=== PATIENT | male | born 1985 | race Caucasian/White ===

== ENCOUNTER 2021-10-16 13:42 | Emergency (ER) | payer BC, SELFPAY ==
--- NOTE | 2021-10-16 13:46 | XR_ITS ---
WS: [id number] Exam: XR knee LT 3V* [id number] Date/Time of Exam: 10/16/2021 1:46 PM Reason For Exam: knee pain after fall There is a comminuted fracture of the upper diaphysis of the fibula with butterfly fragment. Alignmen t should be satisfactory for healing. No fracture of the knee identified. Mild degenerative change of the medial and lateral joint compartments. No joint effusion. XR/XR knee LT 3V* [id number] IMPRESSION: 1. Comminuted fracture of the upper diaphysis of the fibula. 2. Mild degenerative changes of the knee but no fracture seen.
[2021-10-16 14:18] VITALS: BP 127/82; PULSE 83; RESP 16; TEMP 36.8; O2SAT 98; BMI 38.3
--- NOTE | 2021-10-16 14:19 | W.ED.LOWEXIN ---
HPI - Extremity Injury (Lower) General: Chief Complaint: Extremity Injury, Lower Stated Complaint: Fell, Messed up his left knee Time Seen by Provider: 10/16/21 14:19 Source: patient Mode of arrival: wheelchair Limitations: no limitations History of Present Illness: 36-year-old male presents to the ER today for left knee and ankle pain x1 hour. Patient reports he was golfing this afternoon and fell out of the cart onto the concrete. Patient reports he attempted to walk on it and reported severe pain in the ankle and knee. Patient reports he also has a laceration to the knee but bleeding is controlled. Tetanus shot is unknown. Patient has not take anything for pain at this time. Review of Systems General: Reports: 10 or more systems reviewed and unremarkable except in HPI and below PFSH ED PFSH: Medical History No pertinent past medical history Social History Smoking and tobacco status: never smoked Alcohol intake: never Physical Exam Const: COMMON NORMALS: average body habitus, patient oriented x3, no limitations, healthy appearing, alert and well nourished Resp: COMMON NORMALS: normal respiratory effort and No retractions EFFORT & INSPECTION: Yes able to speak in complete sentences Cardio: COMMON NORMALS: regular rate and regular rhythm RATE: regular rate RHYTHM: regular rhythm Back/Pelvis: COMMON NORMALS: thoracic and lumbar spine normal to inspection and thoraco-lumbar ROM normal Extremity: NARRATIVE EXTREMITY EXAM: There is noted to be a deformity of the left ankle with moderate swelling of the ankle joint. Patient is tender to palpation inferior to the left knee on the lateral aspect. Patient is able to move the left ankle however notes significant pain with it. Distal pedal pulses are intact bilaterally and equal. Neuro: COMMON NORMALS: patient oriented x3 SENSORIUM/ORIENTATION: Yes alert Psych: COMMON NORMALS: mental status grossly normal, Normal thought process present and cooperative THOUGHT PROCESS: Normal thought process present Skin: NARRATIVE SKIN EXAM: Patient has abrasions to the left anterior lower leg. Bleeding controlled TRAUMA: laceration Y-shaped (Left knee) Procedures Laceration Laceration 1: Site: lower extremity (Left knee/proximal tibia) Side (If applicable): left Size (cm): 5 Description: other (Y-shaped with some tissue missing) Depth: simple, single layer Local Anesthetic: lidocaine 1% (With epi) Amount of anesthesia used (mL): 4 Pre-repair: wound explored, irrigated extensively and deep structures intact Skin layer closed with: other (ethilon) Size (cm): 4-0 Number of sutures: 5 Technique: simple, interrupted Course ED course: 36-year-old male presents to the ER today for left knee pain and left ankle pain after falling out of a golf cart just prior to arrival. Patient reports he has moderate swelling in the ankle and significant pain with weightbearing. Patient reports he also has pain in the left lateral knee. Patient reports he does have a laceration to the anterior aspect of the lower leg with bleeding controlled. Last tetanus shot unknown. We will get an x-ray of the knee and ankle at this time. We will repair the laceration also and do it tetanus shot in the ER. Consultations: Consultation #1: Spoke with Dr. Alva regarding this patient. Recommends a sugar-tong/PML splint and follow-up with Ortho next week. Time: 14:45 Vital Signs: Vital signs: Vital Signs Temperature 98.3 F 10/16/21 14:18 Pulse Rate 83 10/16/21 14:18 Respiratory Rate 16 10/16/21 14:18 Blood Pressure 127/82 10/16/21 14:18 Pulse Oximetry 98 10/16/21 14:18 Oxygen Delivery Me thod 10/16/21 14:18 MDM - Extremity Injury (Lower) Medical Decision Making 36-year-old male presents to the ER today for left knee pain and left ankle pain after falling out of a golf cart just prior to arrival. Patient reports he has moderate swelling in the ankle and significant pain with weightbearing. Patient reports he also has pain in the left lateral knee. Patient reports he does have a laceration to the anterior aspect of the lower leg with bleeding controlled. Last tetanus shot unknown. We will get an x-ray of the knee and ankle at this time. We will repair the laceration also and do it tetanus shot in the ER. I discussed findings of the imaging with patient. Patient likely has ligament injuries to the left ankle given the x-ray and the enlarged ankle mortise. Patient also has the proximal fibula fracture on the left side. After speaking with Dr. Alva we will splint patient in a PML and sugar-tong splint and have him follow-up with Ortho next week. Patient was given hydrocodone in the ER and will be sent home with hydrocodone for pain. Laceration was repaired and wound care was discussed with the patient. Follow-up in 10 to 14 days for suture removal. Patient will contact Ortho for follow-up in the next week. Patient is to be nonweightbearing, he reports he has crutches at home. Return to the ER with any new or worsening symptoms. Patient verbalized understanding and was in agreement with the treatment plan. Lab Data Radiology Impressions Knee X-Ray 10/16/21 13:46 IMPRESSION: 1. Comminuted fracture of the upper diaphysis of the fibula. 2. Mild degenerative changes of the knee but no fracture seen. Tibia/Fibula X-Ray 10/16/21 14:23 IMPRESSION: 1. Comminuted fracture of the upper diaphysis of the fibula without significant displacement Ankle X-Ray 10/16/21 14:26 IMPRESSION: 1. Avulsion fracture of the lower tip of the medial malleolus. 2. Gapping of the medial aspect of the ankle mortise that may indicate ligamentous instability or injury. 3. Partially visualized fracture of the upper diaphysis of the fibula. Critical Care Time Critical Care Time: Critical Care Time: No Discharge Plan Discharge Patient Disposition: Home Clinical Impression: Laceration of knee without complication Closed left fibular fracture Qualifiers: Encounter type: initial encounter Fibula location: shaft Fracture morphology: comminuted Avulsion fracture of medial malleolus Qualifiers: Encounter type: initial encounter Fracture type: closed Laterality: left Qualified Code(s): S82.52XA - Displaced fracture of medial malleolus of left tibia, initial encounter for closed fracture Condition: Stable Prescriptions: New hydrocodone-acetaminophen 5-325 mg tablet 1 tab PO Q6H PRN (Reason: pain) Qty: 20 0RF No Action prednisone 10 mg tablet 10 mg PO DAILY Qty: 42 0RF Rx Instructions: as directed by Dr. Garcia Discharge Orders: Discharge ED (Routine); Ordered 10/16/21 Ordered By: Mary Carmen Kyle Discharge Diet: Usual diet Discharge Activity: Use walker/crutches as instructed Patient Instructions: Opioid Safety Activity Restrictions/Additional Instructions: Do not get splint wet. Follow-up with Ortho in 3 to 5 days. Take hydrocodone as prescribed. Wound care as discussed, suture removal in 10 to 14 days. Return to the ER with new or worsening symptoms. 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
--- NOTE | 2021-10-16 14:23 | XR_ITS ---
WS: [id number] Exam: XR tibia fibula LT 2V [id number] Date/Time of Exam: 10/16/2021 2:23 PM Reason For Exam: Lower extremity injury There is a comminuted nondisplaced fracture of the upper diaphysis of the fibula. No other fractures are identified. Soft tissues are unremarkable. XR/XR tibia fibula LT 2V [id number] IMPRESSION: 1. Comminuted fracture of the upper diaphysis of the fibula without significant displacement
--- NOTE | 2021-10-16 14:26 | XR_ITS ---
WS: [id number] Exam: XR ankle LT min 3V* [id number] Date/Time of Exam: 10/16/2021 2:26 PM Reason For Exam: Lower Extremity Injury There is an avulsion fracture of the lower tip of the medial malleolus. No other fractures of the ank le are noted. There is gapping of the medial aspect of the ankle mortise that may indicate ligamentou s injury or instability. A partially visualized fracture noted in the upper diaphysis of the fibula w [facility] has been previously described. XR/XR ankle LT min 3V* [id number] IMPRESSION: 1. Avulsion fracture of the lower tip of the medial malleolus. 2. Gapping of the medial aspect of the ankle mortise that may indicate ligament ous instability or injury. 3. Partially visualized fracture of the upper diaphysis of the fibula.
[2021-10-16] MEDS: HYDROcodone-acetaminophen 5-325 mg Tablet 1 TAB PO (14:48)
--- NOTE | 2021-10-16 16:28 | PC.NURSE ---
Applied Bacitracin to road rash on patient's left lower extremity sanchez, calf and ankle. Applied tefla non stick bandages over bacitracin, wrapped leg in cotton padding, applied a vulcanizer leg splint with ankle in a 90 degree angle, then applied a stirrup splint both of ortho glass 3 . Used one 4 agatha wrap and two 3 agatha wraps to wrap the splints on the patient's left lower extremity. Patient had good neuro sensation, cap refill and pulses could be felt in the top of the left foot after the splint was applied.
--- NOTE | 2021-10-17 15:48 | DCPLANNER ---
Addendum entered by Geetha Dow 10/20/21 12:58: Patient had a follow up appointment scheduled for 10.20.[address] Garcia at ortho - patient did attend appointment. Original Note: manager orange had message to schedule a follow up appointment for patient with ortho. manager orange sent patients information to the front office staff at ortho. Patients information will be printed and reviewed. Clinic will call patient with appointment information.
== END 2021-10-16 16:25 | disposition home or self-care (01) ==
PROVIDERS: Emergency Provider Physician Assistant
DX: S82.452A Displaced comminuted fracture of shaft of left fibula, initial encounter for closed fracture (principal); S82.52XA Displaced fracture of medial malleolus of left tibia, initial encounter for closed fracture; S81.012A Laceration without foreign body, left knee, initial encounter; V86.99XA Unspecified occupant of other special all-terrain or other off-road motor vehicle injured in nontraffic accident, initial encounter
CPT/HCPCS: 12002; 29515; 73562; 73590; 73610; 99284

== ENCOUNTER 2021-10-20 15:01 | Outpatient (CLI) | payer BC, SELFPAY | END 2021-10-20 15:02 | disposition home or self-care (01) | LOC: SPT 15:02 | PROVIDERS: Visit Provider Podiatrist Foot & Ankle Surgery | DX: Z46.89 Encounter for fitting and adjustment of other specified devices (principal); S82.52XD Displaced fracture of medial malleolus of left tibia, subsequent encounter for closed fracture with routine healing; X58.XXXD Exposure to other specified factors, subsequent encounter | CPT/HCPCS: 97760; L4361 ==

== ENCOUNTER 2021-10-23 06:36 | Day surgery (SDC) | payer BC, SELFPAY ==
[2021-10-23] VITALS (9 sets, daily range): BP systolic 125–140; BP diastolic 7–105; PULSE 78–97; RESP 14–94; TEMP 36.2–36.7; O2SAT 93–96
--- NOTE | 2021-10-23 | SCC_ITS ---
Procedure done: Open reduction internal fixation left ankle syndesmosis CPT code 30604 36 seconds of fluoroscopic guidance, for a cumulative dose of 0.83 mGy, was provided to Dr. Garcia by the radiology department. C-arm images of the LEFT ankle were saved for the patient's permanent record. [employer]
--- NOTE | 2021-10-23 06:46 | ANES.PREANE2 ---
Pre-Anesthetic Assessment Height/Weight: Height 1.7 m Weight 108.862 kg Preop Diagnosis: Left ankle fracture with syndesmotic disruption Operation Date: 10/23/21 08:20 Proposed Procedures p Open reduction internal fixation left ankle syndesmosis 30189,S93.02XA(Left) - Rolando Garcia DPM Familial anesthetic complications: None Was Beta Behzad taken within 24 hours: N/A Was Clonidine taken within 24 hours: N/A Social No alcohol and No tobacco Exam alert, oriented x 3, clear to auscultation bilaterally and regular rate & rhythm Airway Submandibular: within normal limits Cervical ROM: within normal limits Mallampati: Class II Dentition: full History/ROS No significant complaints Pulmonary None reported CV/HEM None reported None reported Hepatic None reported GI None reported Metabolic None reported Musc/skel Acute fx left ankle Poagra Neuropsych None reported Anesthetic Plan ASA status: 2 Anesthesia: Anesthesia Evaluation, General and Regional (specify below) (Popliteal block for post op pain control ) Other: We discussed risk and benefits of general anesthesia including PONV, sore throat (sometimes severe), corneal abrasion, positioning and peripheral nerve injuries, life threatening allergic reaction, post operative ICU admission requiring prolonged intubation, stroke, heart attack, , and rare incidences of recall. Patient consents to proceed with general anesthesia. We discussed risk and benefits of nerve block for post op pain control including management of pain and titration of pain medications as signs/symptoms of nerve block wearing off begin to appear and/or prior bed. We discussed risk of failed nerve block, vascular injury or other vital structure injury, abscess/infection, LAST, and nerve injury. Patient elects general w/ popliteal block for post op pain control. Risk of > 500 ml blood loss (7ml/kg in children): No Medications/Allergies Home Medications Medication Instructions Recorded Confirmed Last Taken Type Cam Boot to the Left #1 ea 10/20/21 10/20/21 Unknown Rx cephalexin 500 mg capsule 500 mg PO BID 1 week #14 caps 10/20/21 10/23/21 10/22/21 Rx hydrocodone 5 mg-acetaminophen 325 1 tab PO Q6H PRN pain 7 days #28 10/20/21 10/23/21 10/23/21 00:00 Rx mg tablet tabs Allergies Allergy/AdvReac Type Severity Reaction Status Date / Time oseltamivir [From Tamiflu] Allergy hives Verified 10/20/21 11:11 [facility] Anesthesia Medical History No pertinent past medical history Social History Smoking and tobacco status: never smoked Alcohol intake: never Data Anesthesia Cardiac Studies: No Data to Display
[2021-10-23] MEDS: CELEcoxib 200 mg Capsule 400 MG PO (07:16)
[2021-10-23] MEDS: gabapentin 300 mg Capsule PO (07:16)
[2021-10-23] MEDS: sodium chloride 0.9% 1,000 ML 30 ML IV (07:20)
[2021-10-23] MEDS: midazolam 1 mg/mL INJ 2 mL 2 MG IVP (07:29)
[2021-10-23] MEDS: fentaNYL 50 mcg/mL INJ 2mL IVP (07:30)
--- NOTE | 2021-10-23 08:00 | ANES.PROC ---
Anesthesia Procedures Procedure/Date: 10/23/21 Nerve Block ^: Nerve Block 1: Main Anesthesia: general anesthesia Time Out Performed: Yes Consent: requested by attending/covering physician, from patient, risks and benefits reviewed and patient agrees to proceed Nerve block location: popliteal Anesthesia monitors applied: pulse oximetry, BP cuff and oxygen Nerve block position: semi sitting Anesthetic Used: ropivicaine 0.5% Amount of anesthesia used (mL): 20 Ultrasound used to: recognize landmarks and other (visualize and identify popliteal nerve) Nerve Stimulator Used?: No Interscalene/Femoral BLK: 4 stimuplex 21 g needle used for position and inplane approach and visualize local anesthetic spread Patient Tolerated Procedure: well Additional Comments: After time out sterile prep, using sterile technique, and using real time US guidance for target selection needle was inserted with real time visualization of needle entry and real time visualization of needle advancement toward intended target. Negative aspiration. LA injected incrementally with negative aspiration every 5 cc for first 15 cc and real time US visualization of LA spread throughout procedure. Needle repositioned, aspiration positive. Needle withdrawn, heme cleared, repositioned approximate to nerve, negative aspiration, final 5 cc injected with real time US visualization of LA spread. Tolerated well. Image(s) saved.
--- NOTE | 2021-10-23 08:08 | W.PM.OPSUD ---
Surgery/Procedure H&P Update DATE OF PROCEDURE: October 23, 2021 DATE H&P PERFORMED: 10/20/21 CHANGES TO PREVIOUS DOCUMENTATION: None PREOP DIAGNOSIS: Left ankle fracture with syndesmotic disruption PLANNED PROCEDURE: Operation Date: 10/23/21 08:20 Proposed Procedures p Open reduction internal fixation left ankle syndesmosis 77758,S93.02XA(Left) - Rolando Garcia DPM
--- NOTE | 2021-10-23 09:27 | XR_ITS ---
WS: [id number] Left ankle, 3 views, 10/23/2021 Clinical Data: post op Comparison: Left ankle, 10/16/2021. Findings: There are two transverse orthopedic screws across the distal fibula and tibia. There are medial calcifications which may be avulsion fractures from the talus or tip of the medial m alleolus. There are subcutaneous surgical clips adjacent to the distal left fibula. XR/XR ankle LT min 3V* [id number] Impression: Transverse orthopedic screws across the distal tibia and fibula reducing wideni ng of the syndesmosis.
--- NOTE | 2021-10-23 09:29 | P.OP_ITS ---
Operative Report Date of procedure: October 23, 2021 Pre-op diagnosis: Left ankle fracture with syndesmotic disruption Post-op diagnosis: Same Post-op findings: None Procedure done: Open reduction internal fixation left ankle syndesmosis CPT code 14303 Implants: [place] 28 release syndesmotic screw with rigid and dynamic stabilization, 55 mm in length and 50 mm in length. 4-0 nylon, 2-0 Vicryl, 3-0 Vicryl, skin renetta. 10 cc of 0.25% Marcaine plain. Specimens removed/disposition: None Pathology: None Surgeon: Rolando Garcia D.P.M. Marine Diesel Technician: Michael Estimated blood loss: 5 31 minutes IV fluids: None Urine output: None Complications: None Findings: Diastases at syndesmosis and medial gutter left ankle with cotton hook test. Brief History: 36-year-old male sustained a Maisonneuve fracture to the left fibula and syndesmotic disruption with deltoid ligament injury at the left ankle appreciated widening of the medial gutter on x-ray.? There are some comminution at the Maisonneuve fracture no significant displacement.? Date of injury 10/16/2021 got pushed out of a golf cart landed on concrete. Patient examined and evaluated, findings and treatment options were discussed with patient at length.? Discussed unstable nature of his left ankle due to widening at the medial gutter and tib-fib clear space.? Recommended syndesmotic repair can be done outpatient.? Risks include but are not limited to pain, bleeding, numbness, infection, hardware failure, delayed union, malunion, nonunion, high likelihood of posttraumatic arthritis as a result of this injury may require further surgical intervention, advanced bracing and medical management.? Also risk for deep vein thrombosis, heart attack, stroke and .? No acuities written or expressed or implied.? Patient is agreeable wishes to proceed will be done this 10/23/2021 planning on outpatient under general anesthesia.? Planning on [place] 28 syndesmotic screws with both rigid and dynamic stabilization, release. Procedure: Under mild sedation the patient was brought to the operating room and placed on the operating table in supine position. A timeout was performed. Anesthesia was then administered by the anesthesia service. Of note left popliteal block was performed per anesthesia in preop. Well-padded pneumatic tourniquet applied high thigh to the left lower extremity. The left lower extremity was then scrubbed, prepped and draped utilizing normal aseptic technique. Right lower extremity was then exaggerated with an Esmarch bandage and tourniquet inflated to 250 mmHg. Attention was directed to the left lateral ankle where a linear longitudinal incision was made at the distal fibula through skin with a #15 blade with dissection carried down to the layer of periosteum utilizing a combination of sharp and blunt technique. Care was taken to retract and preserve neurovascular and tendinous structures. All bleeders were ligated and cauterized as necessary. A periosteal incision was made and dissection down to the fibula was carried out. Cotton hook test showed widening of the medial gutter as well as widening at the tib-fib clear space. Syndesmotic disruption was appreciated under live fluoroscopy with diastases between the tibia and fibula. Next utilizing standard AO technique [place] 28 release screws with rigid fixation and dynamic stabilization following release screws x2 were inserted from lateral to medial Quadra cortically parallel to the ankle mortise. Intraoperative stressing showed stabilization of the syndesmosis and additional stabilization to some degree to the medial gutter with less widening. Torque handle utilized to tighten release screws with excellent bony apposition and compression noted. Incision site was flushed with copious amounts of sterile skin solution. The incision was then closed with 2-0 Vicryl periosteum, 3-0 Vicryl subcutaneous tissue and skin renetta. Incision was dressed with Adaptic, sterile 4 x 4, Kerlix and Raudel wrap. Cam boot was applied to the left lower extremity. Tourniquet was deflated and a prompt hyperemic response was noted to the distal digits of the left foot. Patient tolerated the procedure and anesthesia well and was transferred to the PACU with vital signs stable and vascular status intact. Following a period of postoperative monitoring he will be discharged home is to remain strict nonweightbearing to the left lower extremity. He is to elevate his left foot while resting. Was given a prescription for pain medication to be taken judiciously as prescribed. He was also given my cell phone number to contact with any postoperative questions or concerns.
--- NOTE | 2021-10-23 09:39 | SUR.OPER ---
0925 PT HAD A SORE ON HIS LEFT KNEE, DR HENSON CLEANED IT, AND REDRESSED IT WITH OINTMENT AND BANDAGE
--- NOTE | 2021-10-23 09:43 | SUR.PHASEI ---
09:35 RECEIVED PT FROM OR STAFF . ALERT AND ORIENTED. VENTILATING WELL. DENIES PAIN. ROM AND SENSATION OF TOES LEFT FOOT. LEFT FOOT ELEVATED. NSR ON MONITOR.
[2021-10-23] MEDS: HYDROcodone-acetaminophen 10-325 mg Tablet 1 TAB PO (10:24)
--- NOTE | 2021-10-23 12:23 | ANE.PACU2 ---
Inpatient post-anesthesia follow up: Airway intact: Yes Vital signs: Temperature 97.8 F Pulse Rate 80 Respiratory Rate 16 Blood Pressure 132/76 Pulse Oximetry 96 Oxygen Delivery Me thod Room Air Oxygen Flow Rate Fraction of Inspir ed Oxygen Hydration adequate: Yes Nausea and vomiting: No Pain level: 1 Mental status: Baseline
== END 2021-10-23 10:35 | disposition home or self-care (01) ==
PROVIDERS: PCP Family Medicine; Visit Provider Podiatrist Foot & Ankle Surgery
PROC: (CPT 27792; principal; 2021-10-23 08:10)
DX: S82.862A Displaced Maisonneuve's fracture of left leg, initial encounter for closed fracture (principal); S93.432A Sprain of tibiofibular ligament of left ankle, initial encounter; V89.1XXA Person injured in unspecified nonmotor-vehicle accident, nontraffic, initial encounter
CPT/HCPCS: 27792; 73610; 76000; C1713 ×2; J1100; J2250; J2405; J2704; J2795; J3010; J7030

== ENCOUNTER → 2021-11-04 16:03 | Outpatient (BNVA) | payer BC, SELFPAY | PROVIDERS: PCP Family Medicine; Visit Provider Podiatrist Foot & Ankle Surgery | DX: Z98.890 Other specified postprocedural states (principal) | CPT/HCPCS: 73610 ==

== ENCOUNTER → 2021-11-18 16:03 | Outpatient (BNVA) | payer BC, SELFPAY | PROVIDERS: PCP Family Medicine; Visit Provider Podiatrist Foot & Ankle Surgery | DX: Z98.890 Other specified postprocedural states (principal); S82.865D Nondisplaced Maisonneuve's fracture of left leg, subsequent encounter for closed fracture with routine healing; S93.432D Sprain of tibiofibular ligament of left ankle, subsequent encounter; X58.XXXD Exposure to other specified factors, subsequent encounter | CPT/HCPCS: 73610 ==

== ENCOUNTER → 2021-12-16 15:51 | Outpatient (BNVA) | payer BC, SELFPAY | PROVIDERS: PCP Family Medicine; Visit Provider Podiatrist Foot & Ankle Surgery | DX: S93.432D Sprain of tibiofibular ligament of left ankle, subsequent encounter (principal); X58.XXXD Exposure to other specified factors, subsequent encounter; Z98.890 Other specified postprocedural states | CPT/HCPCS: 73610 ==

== ENCOUNTER 2021-12-16 16:18 | Outpatient (CLI) | payer BC, SELFPAY | END 2021-12-16 16:19 | disposition home or self-care (01) | LOC: SPT 16:19 | PROVIDERS: PCP Family Medicine; Visit Provider Podiatrist Foot & Ankle Surgery | DX: Z46.89 Encounter for fitting and adjustment of other specified devices (principal); S93.432D Sprain of tibiofibular ligament of left ankle, subsequent encounter; X58.XXXD Exposure to other specified factors, subsequent encounter | CPT/HCPCS: 97760; L1902 ==

== ENCOUNTER → 2022-02-04 13:19 | Outpatient (BNVA) | payer BC, SELFPAY | PROVIDERS: PCP Family Medicine; Visit Provider Podiatrist Foot & Ankle Surgery | DX: S93.432D Sprain of tibiofibular ligament of left ankle, subsequent encounter (principal); S82.862D Displaced Maisonneuve's fracture of left leg, subsequent encounter for closed fracture with routine healing; Z98.890 Other specified postprocedural states; X58.XXXD Exposure to other specified factors, subsequent encounter | CPT/HCPCS: 73610 ==

== ENCOUNTER → 2023-01-10 14:44 | Outpatient (BNVA) | payer OTHER, SELFPAY | PROVIDERS: PCP Family Medicine; Visit Provider Nurse Practitioner Family | DX: R39.9 Unspecified symptoms and signs involving the genitourinary system (principal); R10.32 Left lower quadrant pain | CPT/HCPCS: 81000 ==

== ENCOUNTER → 2023-01-13 16:51 | Outpatient (BNVA) | payer OTHER, SELFPAY | PROVIDERS: PCP Registered Nurse; Visit Provider Registered Nurse | DX: R10.9 Unspecified abdominal pain (principal) | CPT/HCPCS: 80053; 85025; 86140 ==

== ENCOUNTER 2023-01-31 08:33 | Emergency (ER) | payer OTHER, SELFPAY ==
[2023-01-31 08:41] VITALS: BP 162/99; PULSE 71; RESP 16; TEMP 36.4; O2SAT 99; BMI 40.7
--- NOTE | 2023-01-31 08:42 | W.ED.ABDPA2 ---
HPI - Abdominal Pain General: Chief Complaint: Abdominal Pain Stated Complaint: Left side abodmin pain Time Seen by Provider: 01/31/23 08:40 Source: patient Mode of arrival: ambulatory History of Present Illness: 37-year-old male presents emergency room complaining of left-sided flank pain radiating down to his mid abdomen. He has had this for about the last 2 weeks. He was seen about 3 weeks ago had a normal white count very mild elevation of CRP remainder of his labs are unremarkable. He is extremely uncomfortable pacing in the room trying to find a comfortable position. Does not know anything that exacerbates or relieves his symptoms. Denies any hematuria denies any dysuria urgency or frequency. MD elicited complaint: abdominal pain Onset (ago): week(s) (2) Pain Consistency: constant Location: LUQ and L flank Severity: moderate Quality: sharp Radiation: other (Left abdomen) Exacerbating factors: nothing Relieving factors: nothing Associated Symptoms: Denies anorexia, belching, bloating, change in bowel habits, change in stool character, chills, coffee ground emesis, constipation, GI cramping, diarrhea, dyspepsia, dysuria, excessive flatus, fever(s), heartburn, hematochezia, hematuria, hematemesis, fecal incontinence, loose stools, melena, nausea, poor appetite, syncope and vomiting Review of Systems Const: Denies: fever(s) or chills Card: Denies: chest pain or syncope Resp: Denies: dyspnea GI: Denies: abdominal pain, nausea, vomiting, hematemesis, coffee ground emesis, heartburn, diarrhea, constipation, bloating, GI cramping, belching, excessive flatus, fecal incontinence, change in bowel habits, change in stool character, hematochezia or melena : Reports: flank pain; Denies: dysuria, urinary frequency, urinary urgency or hematuria Musc: Denies: neck pain or back pain Skin/Breast: Denies: rash PFSH ED PFSH: Medical History No pertinent past medical history Family History Father Cancer Grandmother Heart disease Social History (Reviewed 01/31/23 @ 08:42 by LISSETTE Lemons Smoking and tobacco/nicotine status: never used tobacco/nicotine Alcohol intake: never Substance/Drug Use: never Physical Exam Const: GENERAL APPEARANCE: cooperative ORIENTATION/CONSCIOUSNESS: Yes awake, Yes oriented to person, Yes oriented to place and Yes oriented to time HENMT: COMMON NORMALS: normocephalic, atraumatic and hearing grossly normal bilaterally HEAD & SCALP: normocephalic and atraumatic Resp: COMMON NORMALS: normal respiratory effort, No retractions, No use of accessory muscles and clear to auscultation bilaterally AUSCULTATION: clear to auscultation bilaterally Cardio: COMMON NORMALS: regular rate, regular rhythm and No murmurs present (Cardio) RATE: regular rate RHYTHM: regular rhythm GI: COMMON NORMALS: Soft to palpation and No hepatosplenomegaly present AUSCULTATION: Yes normoactive bowel sounds PALPATION: Yes Soft to palpation, No Tenderness to palpation present (GI), No Guarding due to palpation present (GI) and Yes No hepatosplenomegaly present : BLADDER/KIDNEY EXAM: Yes CVA tenderness Back/Pelvis: GENERAL BACK: Yes CVA tenderness CVA tenderness: left Extremity: COMMON NORMALS: normal to inspection, capillary refill normal, no clubbing, cyanosis or edema, no calf tenderness and no pedal edema Neuro: SENSORIUM/ORIENTATION: Yes oriented to person, Yes oriented to place and Yes oriented to time Skin: COMMON NORMALS: no rashes or lesions noted GENERAL SKIN EXAM: no rashes or lesions noted Course Vital Signs: Vital signs: Vital Signs Temperature 97.6 F 01/31/23 08:41 Pulse Rate 79 01/31/23 10:49 Respiratory Rate 16 01/31/23 08:41 Blood Pressure 156/92 01/31/23 10:49 Pulse Oximetry 97 01/31/23 10:49 Oxygen Delivery Me thod Room Air 01/31/23 10:49 MDM - Abdominal Pain Medical Decision Making CT shows 4.5 mm stone at the left UVJ pain is improved with medications given. Discharge patient home on Percocet and tamsulosin alone strain urine 6 Case management to make referral to urology. Medical Records I reviewed the patient's medical records. Lab Data I reviewed the patient's lab results. 01/31/23 09:06 01/31/23 09:06 Labs/Radiology: Laboratory Results WBC 7.69 10^3/uL (3.29-11.43) 01/31/23 09:06 RBC 4.86 10^6/uL (3.85-5.65) 01/31/23 09:06 Hgb 13.90 g/dL (11.27-16.99) 01/31/23 09:06 Hct 42.7 % (37-53) 01/31/23 09:06 MCV 87.9 fl (82-101) 01/31/23 09:06 MCH 28.6 pg (27-33) 01/31/23 09:06 MCHC 32.6 g/dL (30-55) 01/31/23 09:06 RDW 12.9 % (12.1-15.1) 01/31/23 09:06 Plt Count 266 10^3/cmm (157-399) 01/31/23 09:06 MPV 10.7 fL (7.4-10.4) H 01/31/23 09:06 Neut % (Auto) 62.9 % 01/31/23 09:06 Lymph % (Auto) 27.0 % 01/31/23 09:06 [place] % (Auto) 8.1 % 01/31/23 09:06 Eos % (Auto) 1.3 % 01/31/23 09:06 Baso % (Auto) 0.3 % 01/31/23 09:06 Neut # (Auto) 4.84 10^3/uL (1.8-7.7) 01/31/23 09:06 Lymph # (Auto) 2.1 10^3/uL (0.8-4.8) 01/31/23 09:06 [place] # (Auto) 0.6 10^3/uL (0.2-0.9) 01/31/23 09:06 Eos # (Auto) 0.1 10^3/uL (0.0-0.8) 01/31/23 09:06 Baso # (Auto) 0.0 10^3/uL (0.0-0.1) 01/31/23 09:06 Nucleated RBC % (auto) 0 % 01/31/23 09:06 Nucleated RBCs # 0.0 /100WBC 01/31/23 09:06 Sodium 141 mmol/L (136-145) 01/31/23 09:06 Potassium 4.2 mmol/L (3.5-5.1) 01/31/23 09:06 Chloride 107 mmol/L (98-107) 01/31/23 09:06 Carbon Dioxide 25 mmol/L (22-29) 01/31/23 09:06 Anion Gap 13.2 (5-19) 01/31/23 09:06 BUN 15 mg/dL (6-20) 01/31/23 09:06 Creatinine 0.8 mg/dL (0.7-1.2) 01/31/23 09:06 GFR Calculation 110.0 mL/min (90-130) 01/31/23 09:06 Glucose 121 mg/dL (65-115) H 01/31/23 09:06 Calculated Osmolality 294 mOsm/kg (285-295) 01/31/23 09:06 Calcium 8.4 mg/dL (8.5-10.5) L 01/31/23 09:06 Total Bilirubin 0.2 mg/dL (0.15-1.2) 01/31/23 09:06 AST 18 U/L (0-40) 01/31/23 09:06 ALT 26 U/L (0-41) 01/31/23 09:06 Alkaline Phosphatase 72 U/L (40-130) 01/31/23 09:06 Total Protein 7.4 g/dL (6.6-8.7) 01/31/23 09:06 Albumin 4.2 g/dL (3.5-5.2) 01/31/23 09:06 Globulin 3.2 g/dL (1.3-4.6) 01/31/23 09:06 Lipase 28 U/L (13-60) 01/31/23 09:06 Urine Color Yellow (Yellow) 01/31/23 09:35 Urine Appearance Clear (CLEAR) 01/31/23 09:35 Urine pH 6 (5-7) 01/31/23 09:35 Ur Specific Reagan 1.020 (1.005-1.030) 01/31/23 09:35 Urine Protein Trace (Negative) 01/31/23 09:35 Urine Glucose (UA) Norm (Normal) 01/31/23 09:35 Urine Ketones 1+ (Negative) H 01/31/23 09:35 Urine Blood 2+ (Negative) H 01/31/23 09:35 Urine Nitrate Negative (Negative) 01/31/23 09:35 Urine Bilirubin Neg (Negative) 01/31/23 09:35 Urine Urobilinogen Norm mg/dL (Negative) 01/31/23 09:35 Ur Leukocyte Esterase Negative (Negative) 01/31/23 09:35 Urine RBC 0-4 /hpf (0-2) H 01/31/23 09:35 Urine WBC 0-4 /hpf (0-5) H 01/31/23 09:35 Ur Squamous Epith Cells 0-4 /hpf (0-5) H 01/31/23 09:35 Amorphous Sediment Not Reportable 01/31/23 09:35 Urine Bacteria Trace /hpf (NONE) 01/31/23 09:35 All radiology interpretation(s) finalized by discharge Discharge Plan Discharge Patient Disposition: Home Clinical Impression: Calculus of kidney Condition: Stable Prescriptions: New Percocet 5-325 mg tablet 1 tab PO Q4H PRN (Reason: pain) Qty: 20 0RF tamsulosin 0.4 mg capsule 0.4 mg PO DAILY Qty: 20 0RF Discharge Orders: Discharge ED (Routine); Ordered 01/31/23 Ordered By: Panfilo Dent Referrals: Gucci Neves FNP [Primary Care Provider] - Discharge Diet: Usual diet Discharge Activity: Increase activity as tolerated Patient Instructions: Kidney Stones (ED), How to Strain Your Urine (ED), Opioid Safety, Pain Management Activity Restrictions/Additional Instructions: Thank you for choosing [facility] for your healthcare needs today. Please realize this is an emergency room and that we are providing you with a medical screening exam and this may not be complete and all inclusive of all the testing and or work up that you may need to determine your ailment or severity of your illness. It is very important that you follow up as instructed or that you return to the Emergency Department should you have concerns or if your condition changes or worsens in any way. You are seen today for kidney stone. Case management make arrangements for follow-up with a urologist. Coding Level of Care Code ED Data Virtualization Consultant for Nayana Cotto
--- NOTE | 2023-01-31 08:53 | CT_ITS ---
WS: [id number] CT ABDOMEN PELVIS TECHNIQUE: Noncontrast CT of the abdomen and pelvis with coronal and sagittal reformatted images. CLINICAL INFORMATION: flank pain COMPARISON: None. DLP: 1156.[address] scans at [facility] use at least one of these dose optimization techniques: automated e xposure control; mA and/or kV adjustment per patient size (includes targeted exams where dose is matc hed to clinical indication); or iterative reconstruction. FINDINGS: 4.7 mm obstructing calculus at the LEFT UVJ. Mild LEFT ureterectasis. Mild LEFT pelvicaliectasis. Mil d inflammatory stranding and edema about the LEFT kidney. No hydronephrosis in the RIGHT kidney. Lung bases are well aerated. Noncontrast liver and spleen are normal. Normal GE junction. Adrenal glands are normal. Normal noncontrast pancreas. Normal noncontras t aorta. Small fat-containing umbilical hernia. Prostate calcification. Normal appendix in the RIGHT lower galileo drant. A few sigmoid diverticuli. No other suspicious findings. IMPRESSION: 1. 4.7 mm obstructing calculus at the LEFT UVJ. Mild LEFT ureterectasis and pelvicaliectasis. Mild i nflammatory stranding and edema about the LEFT kidney. 2. No other acute findings. Notified Panfilo Dent DO at 01/31/2023 10:40 AM.
[2023-01-31] MEDS: sodium chloride 0.9% 1,000 ML 999 ML IV (09:09)
[2023-01-31] MEDS: morphine 4 mg/mL SDV 1 mL IVP ×3 (09:09→10:48)
[2023-01-31 09:13] VITALS: BP 162/99; PULSE 82; O2SAT 96
[2023-01-31 09:40] LABS: Basophils % 0.3 %; Eosinophils # 0.1 10^3/uL (0.0-0.8); Eosinophils % 1.3 %; Hematocrit 42.7 % (37-53); Lymphocytes # 2.1 10^3/uL (0.8-4.8); Mean Corpuscular HGB Conc 32.6 g/dL (30-55); Mean Corpuscular Hemoglobin 28.6 pg (27-33); Mean Corpuscular Volume 87.9 fl (82-101); Mean Platelet Volume 10.7 fL (7.4-10.4); Monocytes # 0.6 10^3/uL (0.2-0.9); Monocytes % 8.1 %; Neutrophils # 4.84 10^3/uL (1.8-7.7); Neutrophils % 62.9 %; Nucleated Red Blood Cells % 0 %; Platelet Count 266 10^3/cmm (157-399); Red Blood Count 4.86 10^6/uL (3.85-5.65); Red Cell Distribution Width 12.9 % (12.1-15.1); White Blood Count 7.69 10^3/uL (3.29-11.43)
[2023-01-31 09:57] LABS: Alanine Aminotransferase 26 U/L (0-41); Albumin Level 4.2 g/dL (3.5-5.2); Alkaline Phosphatase 72 U/L (40-130); Anion Gap 13.2 (5-19); Aspartate Amino Transferase 18 U/L (0-40); Blood Urea Nitrogen 15 mg/dL (6-20); Calcium 8.4 mg/dL (8.5-10.5); Carbon Dioxide 25 mmol/L (22-29); Chloride 107 mmol/L (98-107); Globulin 3.2 g/dL (1.3-4.6); Glucose 121 mg/dL (65-115); Lipase 28 U/L (13-60); Osmolality Calculated 294 mOsm/kg (285-295); Potassium 4.2 mmol/L (3.5-5.1); Sodium 141 mmol/L (136-145); Total Bilirubin 0.2 mg/dL (0.15-1.2); Total Protein 7.4 g/dL (6.6-8.7)
[2023-01-31 10:17] LABS: Add Urine Culture? No; Add Urine Microscopic? YES; Bacteria Urine TRACE /hpf; Bilirubin Urine Neg (Negative); Blood Urine 2+ (Negative); Glucose Urine UA Norm (Normal); Ketones Urine 1+ (Negative); Leukocyte Esterase Urine Negative (Negative); Nitrate Urine Negative (Negative); Protein Urine Trace (Negative); RBC Urine 0-4 /hpf (0-2); Squamous Epithelial Cell Urine 0-4 /hpf (0-5); Urine Appearance Clear (CLEAR); Urine Color Yellow (Yellow); Urobilinogen Urine Norm (Negative); WBC Urine 0-4 /hpf (0-5); pH Urine 6 (5-7)
[2023-01-31 10:49] VITALS: BP 156/92; PULSE 79; O2SAT 97
--- NOTE | 2023-02-07 10:04 | DCPLANNER ---
Called and spoke to patient -Ashish- he requested [facility] urology for a referral- Referral sent today- Fx [phone]
== END 2023-01-31 11:13 | disposition home or self-care (01) ==
PROVIDERS: Emergency Provider Family Medicine; PCP Registered Nurse
DX: N20.0 Calculus of kidney (principal)
CPT/HCPCS: 36415; 74176; 80053; 81001; 83690; 85025; 96361; 96374; 96376; 99285; J2270; J7030

== ENCOUNTER → 2023-11-17 09:08 | Outpatient (BNVA) | payer OTHER, SELFPAY | PROVIDERS: PCP Registered Nurse; Visit Provider Registered Nurse | DX: Z80.9 Family history of malignant neoplasm, unspecified (principal); Z12.5 Encounter for screening for malignant neoplasm of prostate | CPT/HCPCS: 80053; 81000; 85025; G0103 ==

== ENCOUNTER → 2024-12-04 10:15 | Outpatient (BNVA) | payer OTHER, SELFPAY | PROVIDERS: PCP Registered Nurse; Visit Provider Registered Nurse | DX: Z13.6 Encounter for screening for cardiovascular disorders (principal); Z13.1 Encounter for screening for diabetes mellitus; Z12.5 Encounter for screening for malignant neoplasm of prostate | CPT/HCPCS: 80053; 83036; 85025; G0103 ==